=== PATIENT | female | born 1935 | race Caucasian/White ===

== ENCOUNTER → 2018-02-18 | Outpatient (CLI) | payer OTHER ==
[~2018-02-18] MED LIST: APAP500 PO; ASACOL400 MG PO; CYMBALTA60 MG PO; DIOVAN320 MG PO; HALCION0.25 MG PO; HYPOTEARS EYE D15 ML OPHTHALMIC; MULTIVITAMINS1 EAC7 PO; NORVASC10 MG PO; OCUVITE ADULT1 EACH PO; PREMARIN0.3 MG PO; REMERON15 MG PO; SYNTHROID50 MCG PO; VITAMIN D1000 UNI1 PO; ZANTAC 150MG T150 M1 PO; ZOCOR40 MG PO
== END ==
LOC: RAD 01:24
DX: Z12.31 Encounter for screening mammogram for malignant neoplasm of breast (principal)

== ENCOUNTER → 2019-04-11 | Outpatient (CLI) | payer OTHER | LOC: RAD 07:41 | DX: Z12.31 Encounter for screening mammogram for malignant neoplasm of breast (principal) ==

== ENCOUNTER → 2020-04-21 | Outpatient (CLI) | payer OTHER | LOC: RAD 12:45 | PROVIDERS: ATTEND Family Medicine | DX: Z12.31 Encounter for screening mammogram for malignant neoplasm of breast (principal) ==

== ENCOUNTER → 2020-11-10 | Outpatient (CLI) | payer OTHER | LOC: SJCVC 14:33 | PROVIDERS: ATTEND Internal Medicine Cardiovascular Disease | DX: R94.31 Abnormal electrocardiogram [ECG] [EKG] (principal); I11.9 Hypertensive heart disease without heart failure; R01.1 Cardiac murmur, unspecified; R06.00 Dyspnea, unspecified; I34.0 Nonrheumatic mitral (valve) insufficiency; E78.00 Pure hypercholesterolemia, unspecified; E03.9 Hypothyroidism, unspecified; M81.0 Age-related osteoporosis without current pathological fracture; Z79.899 Other long term (current) drug therapy ==

== ENCOUNTER 2021-04-09 23:31 | Inpatient (IN) | payer OTHER ==
[~2021-04-09] VITALS: Ht 162.6 cm; Wt 53.5 kg
[~2021-04-09 23:31] MED LIST changes: -APAP500 PO; +TYLENOL325 MG PO
[2021-04-09 23:34] VITALS: BP 182/90
[2021-04-10] VITALS (8 sets, daily range): BP systolic 142–178; BP diastolic 65–94
[2021-04-10 00:35] LABS: BE(vivo) 3.5 mmol/L (-2 to +3); HCO3 27.7 mmol/L (22.0-26.0); PCO2 40.3 mmHg (35.0-45.0); pH 7.455 (7.360-7.450); sO2 90.6 % (92.0-98.0)
[2021-04-10 01:38] LABS: ABSOLUTE NEUTROPHILS 12.5 thou/uL (1.4-8.2); BASOPHILS 0.5 % (0.0-2.0); EOSINOPHILS 1.5 % (0.0-3.0); HEMATOCRIT 35.3 % (37.0-47.0); HEMOGLOBIN 11.8 gm/dL (12.0-15.0); LYMPHOCYTES 14.6 % (24.0-44.0); MCH 30.2 pg (26.0-34.0); MCHC 33.3 g/dL (28.0-37.0); MCV 90.6 fL (80.0-100.0); MONOCYTES 7.3 % (1.0-8.0); PLATELET COUNT 474 thou/uL (150-400); POLYS 76.1 % (36.0-66.0); WBC 16.4 thou/uL (4.0-11.0)
[2021-04-10 01:43] LABS: ANION GAP 7 mmol/L (7-16); BUN 18 mg/dL (7-18); CALCIUM 9.9 mg/dL (8.5-10.1); CHLORIDE 88 mmol/L (98-107); CO2 31 mmol/L (21-32); CREATININE 0.9 mg/dL (0.6-1.0); GLUCOSE 104 mg/dL (74-106); POTASSIUM 4.7 mmol/L (3.5-5.1); SODIUM 126 mmol/L (136-145)
[2021-04-10 01:53] LABS: ALBUMIN 3.4 g/dL (3.4-5.0); SGOT 17 U/L (15-37); SGPT 17 U/L (14-59); TOTAL BILIRUBIN 0.3 mg/dL (0.2-1.0); TOTAL PROTEIN 7.8 g/dL (6.4-8.2); TROPONIN-I <0.06 ng/mL (<0.06)
[2021-04-10] MEDS ORDERED: LOSARTAN POTAS100 MG PO (02:23)
--- NOTE | 2021-04-10 03:30 | NUR ---
Pt. admitted to the unit from the emergency room accompanied by staff. She is alert and oriented and offers no c/o pain. Ambulates to the bathroom with assist of one and walker. Admission assessment and history is completed.
--- NOTE | 2021-04-10 11:41 | EKG ---
[place] [address] [facility] [place] [address] ELECTROCARDIOGRAM REPORT Name: ESPERANZA CH Room #: 450-P ADM IN M.R.#: [id number] Admission: 04/10/21 Attend Phys: Alexander Galindo MD Discharge: Date of : 31 Report #: [id number] [facility] ED Test Date: 2021-04-10 Test Time: 00:34:40 Pat Name: ESPERANZA CH Department: Room: [facility] Gender: F Pattern Chart Writer: FLORENTIN : 1935 Requested By: Dustin Kirkland Order Number: [id number] MD: Duane Mccarthy Measurements Intervals [place] Rate: 93 P: 25 SD: 165 QRS: -11 QRSD: 109 T: 70 QT: 368 QTc: 458 Interpretive Statements Sinus rhythm Ventricular premature complex Compared to ECG 09/07/2008 10:52:46 Ventricular premature complex(es) now present T-wave abnormality no longer present Electronically Signed On 04-10-2021 11:40:50 CDT by Duane Mccarthy [email or web address] <ELECTRONICALLY SIGNED> By: Duane Mccarthy MD, [facility] 04/10/21 1140 Duane Mccarthy MD, [facility] /EPI
[2021-04-10] MEDS ORDERED: MYRBETRIQ25 MG PO (15:36)
[2021-04-10] MEDS ORDERED: FLORANEX TABLE1 EACH PO (15:36)
[2021-04-10] MEDS ORDERED: FAMOTIDINE 20 M20 MG PO (15:37)
[2021-04-10] MEDS ORDERED: GRALISE600 MG PO (15:38)
[2021-04-10] MEDS ORDERED: OCUVITE TABLET1 EAC1 PO (15:39)
[2021-04-10] MEDS ORDERED: VALIUM10 MG PO (15:39)
[2021-04-10] MEDS ORDERED: SUPER THERAVIT1 EACH (15:40)
[2021-04-10] MEDS ORDERED: IBU600 MG PO (15:44)
--- NOTE | 2021-04-10 17:13 | NUR ---
Assumed pt care this am, vs stable. No N / V noted, steady in her gait and is able to ambulate from bed to toilet. POC followed with no signs or verbalizations of distress noted. Home medication list given by the children, updated med chauncey.MD informed.
--- NOTE | 2021-04-11 00:50 | NUR ---
UPON SHIFT ASSESSMENT, PT AOX4. PT REPORTS 5/10 HEADACHE PAIN. PT RECEIVING PRN PO APAP Q4HR. PT DENIES SOB WHILE ON ROOM AIR. PT WITH INTERMITTENT NONPRODUCTIVE COUGH. PT TOLERATING PO INTAKE OF FLUIDS AND HEART HEALTHY DIET WITHOUT ISSUE. PT WITHOUT NAUSEA OR EMESIS. PT AMBULATING INDEPENDENTLY IN ROOM AND TO BATHROOM, GAIT STEADY. SENSATION INTACT, CAPILLARY REFILL LESS THAN 3SEC, PERIPHERAL PULSES PALPABLE IN ALL EXTREMITIES. FREQUENT REPOSITIONING ENCOURAGED WHILE IN BED, PT NOTED TO SHIFT INDEPENDENTLY. PT ENCOURAGED TO NOTIFY STAFF FOR ALL NEEDS, CALL LIGHT WITHIN REACH, BED LOCKED IN LOWEST POSITION, FREQUENT MONITORING WILL CONTINUE.
[2021-04-11 03:47] VITALS: BP 116/59
[2021-04-11 05:14] LABS: HEMATOCRIT 25.8 % (37.0-47.0); MCH 31.2 pg (26.0-34.0); MCHC 34.6 g/dL (28.0-37.0); MCV 90.4 fL (80.0-100.0); RBC 2.85 mil/uL (4.20-5.00); RDW 13.8 % (10.5-14.5); WBC 9.9 thou/uL (4.0-11.0)
[2021-04-11 05:21] LABS: HEMOGLOBIN 8.9 gm/dL (12.0-15.0)
[2021-04-11 05:30] LABS: CALCIUM 8.8 mg/dL (8.5-10.1); CREATININE 0.6 mg/dL (0.6-1.0); POTASSIUM 3.7 mmol/L (3.5-5.1)
--- NOTE | 2021-04-11 13:38 | NUR ---
PT ADMITTED RELATED TO PNEUMONIA. CM REVIEWED CHART AND SPOKE WITH CARE TEAM. CM MET WITH PT AT BEDSIDE THIS DAY. PT APPEARED TO BE A&O X4. CM ROLE INTRODCUED. PT INDICATED SHE LIVES IN A HOUSE WITH HER SPOUSE WITH 1 STEP TO ENTER AND NO STEPS INSIDE. PT INDICATED THAT SHE HAS A FWW FOR HOME USE WELL A TRANSPORT CHAIR, AND A CANE. PT INDICATED THAT HER TWO DTRS ASSIST WITH MEAL PREPERATION AND LAUNDRY. PT INIDCATED NO HOME O2, NO HH, AND NO PRIOR POST ACUTE CARE STAYS. PT INDICATED SHE PLANS TO RETURN HOME ONCE MEDICALLY STABLE. CM FOLLOWING REGARDING DC PLANNING.
--- NOTE | 2021-04-11 17:50 | NUR ---
ASSUMED PT CARE THIS AM. PT IS ALERT & ORIENTED X4. PT HAS IV SITE ON L AC RUNNING NS @75ML/HR. PT IS UP WITH X1 AND USES WALKER. PT IS ON 3L O2 NC WITH 100% O2 SAT. PT TOLERATED MEDICATION DIET WELL DURING THE SHIFT. NO C/O OF PAIN, NAUSEA AND VOMITING. PT FAMILY AT THE BEDSIDE. PT ON THE BED, BED ON THE LOWEST POSITION, SIDE RAILS UP, CALL LIGHT WITHIN REACH. WILL CONTINUE TO MONITOR PT. FOLLOW POC.
[2021-04-11 19:32] VITALS: BP 151/68
--- NOTE | 2021-04-12 02:18 | NUR ---
ASSUMED CARE OF PT AT 1900. PT IS A/O X4 AND IS UP WITH SBA USING WALKER. CONTINUES ON 3 LITERS O2 NC WITH SOA WITH EXERTION. DENIES C/O PAIN OR DISCOMFORT. SR ON THE MONITOR. DENIES C/O PAIN OR DISCOMFORT. VSS AFEBRILE. FALL PRECAUTIONS IN PLACE, CALL LIGHT IS WITHIN REACH. PT IS PROGRESSING TOWARDS PLAN OF CARE DC GOALS.
[2021-04-12 06:04] LABS: HEMATOCRIT 26.4 % (37.0-47.0); HEMOGLOBIN 8.9 gm/dL (12.0-15.0); MCH 30.2 pg (26.0-34.0); MCHC 33.5 g/dL (28.0-37.0); MCV 90.2 fL (80.0-100.0); RBC 2.93 mil/uL (4.20-5.00); RDW 14.1 % (10.5-14.5); WBC 10.7 thou/uL (4.0-11.0)
[2021-04-12 07:15] VITALS: BP 158/69
[2021-04-12 15:28] VITALS: BP 131/65
--- NOTE | 2021-04-12 15:28 | NUR ---
ASSUMED CARE OF PT AT 0700 THIS MORNING. PT WAS ADMITTED FOR PNEUMONIA. PT HAS BEEN HAVE A NONPRODUCTIVE COUGH. LUNG ARE CRCKLING IN LOWER LOBES. PT HAS GOOD O2SAT @ 1L/NC AT REST AND NEEDS 3L ON EXCERSION. PT HAS WORKED WITH PT AND STATED SHE MIGHT NEED OXYGEN THERAPY AT HOME. RT HAS BEEN WORKING WITH TX ON PT AND STATED THE SAME THING. DR. DECKER STATED THAT SHE WOULD LIKE FLUIDS DC'D AND FUROSEMIDE, 20MG IVP TO TRY AND REMOVE THE EDEMA FROM LEGS AND REDUCE THE CRACKLES IN THE LUNGS. PT HAS BEEN URINATING FRQUENTLY AND EDEMA IN LOWER EXTREMITIES HAVE BEEN REDUCED TO NONPITTING. ASSESSMENTS OTHERWISE UNREMARKABLE. VSS. CALL LIGHT AND OTHER NEEDS ARE PLACED WITHIN REACH, TX AND MEDS GIVEN NEEDED AND SCHEDULED.
--- NOTE | 2021-04-12 16:35 | NUR ---
CARE TEAM INDICATED THAT PT ISN'T MEDCIALLY STABLE TO DC HOME THIS DAY. THEY ORDERED SOME ADDITIONAL TESTING AN ECHO AND XRAY. PT NEEDS HOME O2 UPON DC. CM MET WITH PT AND DTRS AT BEDSIDE THIS DAY. NO PREFERENCE INIDCATED FOR PROVIDER FOR OR HH. CM FAXED REFERRAL TO [facility] AND REACHED OUT TO [facility]. AWAITING RESPONSES. ANTICPATE DC TOMORROW.
[2021-04-12 19:34] VITALS: BP 127/65
--- NOTE | 2021-04-13 04:00 | NUR ---
Pt. rested quietly during the night when checked on during frequent rounds. She offers no c/o pain or shortness of air. Ambulates to the bathroom with walker and standby assist.
[2021-04-13 07:12] VITALS: BP 134/62
[2021-04-13 10:30] LABS: MCH 30.3 pg (26.0-34.0); MCHC 33.4 g/dL (28.0-37.0); MCV 90.9 fL (80.0-100.0); RBC 3.3 mil/uL (4.20-5.00); RDW 13.9 % (10.5-14.5); WBC 9.6 thou/uL (4.0-11.0)
--- NOTE | 2021-04-13 10:40 | 2DMMODE ---
[facility] [place] [address] 2 D/M-MODE ECHOCARDIOGRAM Name: ESPERANZA CH Room #: 450-P ADM IN M.R.#: [id number] Admission: 04/10/21 Attend Phys: Mali Craig MD Discharge: Date of : 31 Report #: [id number] THIS REPORT FOR: cc: Dimitri Barry MD, Rene P. MD Santiago, Patrick MD [facility] ~ APPROVED REPORT Study performed: 04/13/2021 09:39:52 EXAM: Comprehensive 2D, Doppler, and color-flow Echocardiogram Patient Location: Bedside Room #: 450 Status: routine BSA: 1.56 HR: 96 bpm BP: 134/62 mmHg Rhythm: Atrial Fibrillation Other Information Study Quality: Good Indications Murmur Dyspnea Hypertension/HDD 2D Dimensions RVDd: 29.11 mm IVSd: 11.71 (7-11mm) LVOT Diam: 22.34 (18-24mm) LVDd: 49.66 mm PWd: 11.66 (7-11mm) Ascending Ao: 28.60 (22-36mm) LVDs: 32.22 (25-40mm) Left Atrium: 36.33 (27-40mm) Aortic Root: 32.27 mm IVC: 16.00 mm Volumes Left Atrial Volume (Systole) Single Plane 4CH: 91.35 mL Single Plane 2CH: 134.67 mL LA ESV Index: 76.00 mL/m2 Aortic Valve AoV Peak Hiram.: 1.95 m/s AO Peak Gr.: 15.20 mmHg LVOT Max P.88 mmHg [facility] [address] [place] [address] 2 D/M-MODE ECHOCARDIOGRAM Name: JINGESPERANZA L Room #: 450-P [facility]#: [id number] Admission: 04/10/21 Attend Phys: Mali Craig MD Discharge: Date of : 31 Report #: [id number] LVOT Max V: 0.85 m/s ANA Vmax: 1.71 cm2 AI Vmax: 3.50 m/s AI Glynn: 1.49 m/s2 AI PHT: 681.12 ms Pulmonary Valve PV Peak Hiram.: 0.87 m/s PV Peak Gr.: 3.00 mmHg Tricuspid Valve TR Peak Hiram.: 4.02 m/s TR Peak Gr.: 64.89 mmHg PA Pressure: 75.00 mmHg Left Ventricle The left ventricle is normal size. There is normal LV segmental wall motion. Mild concentric left ventricular hypertrophy. The left ventricular systolic function is normal. The left ventricular ejection fraction is within the normal range. LVEF is 55-60%. This study is not technically sufficient to allow evaluation of the LV diastolic function due to atrial fibrillation. Right Ventricle The right ventricle is normal size. The right ventricular systolic function is normal. Atria Left atrium is dilated. Right atrium is dilated. Aortic Valve The aortic valve is normal in structure. Trace aortic regurgitation. There is no aortic valvular stenosis. Mitral Valve The mitral valve is normal in structure. Moderate to severe mitral regurgitation No evidence of mitral valve stenosis. Prolapse of the posterior mitral valve leaflet. Tricuspid Valve The tricuspid valve is normal in structure. There is mild tricuspid regurgitation. Estimated PAP 75 mmHg. There is severe pulmonary hypertension. Pulmonic Valve The pulmonary valve is normal in structure. Mild to moderate pulmonic regurgitation. [facility] [place] [address] 2 D/M-MODE ECHOCARDIOGRAM Name: ESPERANZA CH Hector Room #: 450-P [facility] IN M.R.#: [id number] Admission: 04/10/21 Attend Phys: Mali Craig MD Discharge: Date of : 31 Report #: [id number] Great Vessels The aortic root is normal in size. IVC is normal in size and collapses >50% with inspiration. Pericardium There is no pericardial effusion. 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
[2021-04-13 10:41] LABS: CALCIUM 9.2 mg/dL (8.5-10.1); CREATININE 0.6 mg/dL (0.6-1.0)
[2021-04-13] MEDS ORDERED: LASIX 20 MG TAB20 MG PO (13:58)
[2021-04-13] MEDS ORDERED: CEFDINIR300 MG PO (13:58)
[2021-04-13 14:44] VITALS: BP 134/62
[2021-04-13 15:12] VITALS: BP 134/62
[2021-04-13 15:13] VITALS: BP 134/62
--- NOTE | 2021-04-13 15:20 | NUR ---
CARE TEAM INDICATED THAT PT IS MEDICALLY STABLE TO DC HOME THIS DAY. CM CONTACTED 15 HH PROVIDERS AND FOUND THAT [facility] IS ABLE TO ACCEPT PT FOR PT, OT, AND NURSING SERVICES. CM FAXED ORDERES. PT NEEDS HOME O2 [facility] [place] PROVIDED PORTABLE TANK FOR PT TO DC HOME WITH. CM FAXED ORDERS TO THEM WELL. CM MET WITH PT AND DTR JEFF AT BEDSIDE AND NOTIFIED THEM OF THE ABOVE AND ALL ARE AWARE AND AGREEABLE. PT'S DTR TO PROVIDE TRANSPORT HOEM THIS DAY. NO OTHER CM INTERVENTION INDICATED. CASE CLOSED.
[2021-04-13 15:21] VITALS: BP 148/84
--- NOTE | 2021-04-13 16:36 | NUR ---
PT DAUGHTER VISITING, BOTH EDUCATED ON HOW TO USE OXYGEN TANK AND WO TO CALL WHEN IT RUNS OUT. HH SETUP BY [facility]. IV AND TELE D/C. DISCHARGE INSTRUTION WENT THRU WITH PT. DENIES ANY QUESTIONS. ALL PT BELONGINGS. PT TAKEN DOWN VIA WHEELCHAIR.
== END 2021-04-13 16:27 | disposition home health service (06) | DRG 871 ==
LOC: ER 23:31 → 4W 04-10 02:06 → EROBS 04-10 02:06 → 4W 04-10 02:34
PROVIDERS: Emergency Medicine; Hospitalist; Nurse Practitioner Family; ADMIT Internal Medicine; ATTEND Internal Medicine
DX: A41.9 Sepsis, unspecified organism (principal); J96.01 Acute respiratory failure with hypoxia; J18.9 Pneumonia, unspecified organism; I50.33 Acute on chronic diastolic (congestive) heart failure; N17.9 Acute kidney failure, unspecified; E87.1 Hypo-osmolality and hyponatremia; F41.9 Anxiety disorder, unspecified; F32.9 Major depressive disorder, single episode, unspecified; E03.9 Hypothyroidism, unspecified; K21.9 Gastro-esophageal reflux disease without esophagitis; G47.00 Insomnia, unspecified; N32.81 Overactive bladder; I11.0 Hypertensive heart disease with heart failure; K59.00 Constipation, unspecified; I27.21 Secondary pulmonary arterial hypertension; D64.9 Anemia, unspecified; K27.9 Peptic ulcer, site unspecified, unspecified as acute or chronic, without hemorrhage or perforation; Z96.652 Presence of left artificial knee joint; Z20.822 Contact with and (suspected) exposure to COVID-19; Z66 Do not resuscitate; Z90.710 Acquired absence of both cervix and uterus; Z85.828 Personal history of other malignant neoplasm of skin; Z98.42 Cataract extraction status, left eye; Z98.41 Cataract extraction status, right eye; Z79.899 Other long term (current) drug therapy
CPT/HCPCS: 10045

== ENCOUNTER → 2021-04-19 | Outpatient (CLI) | payer OTHER ==
[~2021-04-19] MED LIST changes: +CEFDINIR300 MG PO; +FAMOTIDINE 20 M20 MG PO; +FLORANEX TABLE1 EACH PO; +GRALISE600 MG PO; +IBU600 MG PO; +LASIX 20 MG TAB20 MG PO; +LOSARTAN POTAS100 MG PO; +MYRBETRIQ25 MG PO; +OCUVITE TABLET1 EAC1 PO; +SUPER THERAVIT1 EACH; +VALIUM10 MG PO
== END ==
LOC: RAD 14:19
PROVIDERS: ATTEND Family Medicine
DX: I50.41 Acute combined systolic (congestive) and diastolic (congestive) heart failure (principal); I70.0 Atherosclerosis of aorta; M41.84 Other forms of scoliosis, thoracic region

== ENCOUNTER → 2021-04-27 | Outpatient (CLI) | payer OTHER | LOC: SJCVC 15:11 | PROVIDERS: ATTEND Internal Medicine Cardiovascular Disease | DX: R94.31 Abnormal electrocardiogram [ECG] [EKG] (principal); I34.0 Nonrheumatic mitral (valve) insufficiency; I10 Essential (primary) hypertension; E78.00 Pure hypercholesterolemia, unspecified; R06.00 Dyspnea, unspecified; M81.0 Age-related osteoporosis without current pathological fracture; E78.5 Hyperlipidemia, unspecified; Z90.710 Acquired absence of both cervix and uterus; Z88.8 Allergy status to other drugs, medicaments and biological substances; Z79.899 Other long term (current) drug therapy ==

== ENCOUNTER 2021-12-20 13:25 | Emergency (ER) | payer MEDICARE ==
[~2021-12-20] VITALS: Ht 162.6 cm; Wt 49.9 kg
[2021-12-20 13:34] VITALS: BP 151/72
[2021-12-20 13:59] LABS: BASOPHILS 0.9 % (0.0-2.0); HEMATOCRIT 34.5 % (37.0-47.0); HEMOGLOBIN 11.6 gm/dL (12.0-15.0); LYMPHOCYTES 22.7 % (24.0-44.0); MCHC 33.6 g/dL (28.0-37.0); MCV 89.3 fL (80.0-100.0); MONOCYTES 5.9 % (1.0-8.0); PLATELET COUNT 307 thou/uL (150-400); POLYS 66.5 % (36.0-66.0); RBC 3.87 mil/uL (4.20-5.00); RDW 14.9 % (10.5-14.5); WBC 7.5 thou/uL (4.0-11.0)
[2021-12-20 14:07] LABS: CALCIUM 9.1 mg/dL (8.5-10.1); POTASSIUM 3.5 mmol/L (3.5-5.1)
[2021-12-20 14:14] LABS: ALBUMIN 3.5 g/dL (3.4-5.0); TOTAL BILIRUBIN 0.6 mg/dL (0.2-1.0); TOTAL PROTEIN 6.9 g/dL (6.4-8.2)
== END 2021-12-20 16:38 | disposition home or self-care (01) ==
LOC: ER 13:25
PROVIDERS: Student in an Organized Health Care Education/Training Program
DX: J40 Bronchitis, not specified as acute or chronic (principal); Z20.822 Contact with and (suspected) exposure to COVID-19; I11.0 Hypertensive heart disease with heart failure; I50.9 Heart failure, unspecified; F41.9 Anxiety disorder, unspecified; F32.9 Major depressive disorder, single episode, unspecified; Z90.710 Acquired absence of both cervix and uterus; Z85.828 Personal history of other malignant neoplasm of skin; Z79.891 Long term (current) use of opiate analgesic; Z79.899 Other long term (current) drug therapy; Z79.1 Long term (current) use of non-steroidal anti-inflammatories (NSAID)